=== PATIENT | female | born 1955 | race Caucasian/White ===

== ENCOUNTER 2024-03-19 06:35 | Day surgery (SDC) | payer MEDICARE, OTHER, SELFPAY ==
[2024-02-29 13:33] VITALS: BMI 25.1
[2024-02-29 15:04] LABS: Hematocrit 39.8 % (37.0-47.0); Hemoglobin 13.2 g/dL (12.0-16.0); Mean Corp Hgb Conc. 33.2 g/dL (33.0-37.0); Mean Corpuscular Hgb 29.1 pg (27.0-31.0); Mean Corpuscular Volume 87.9 fL (81.0-99.0); Mean Platelet Volume 11.9 fL (7.4-10.4); Platelet Count 263 10^3/uL (130-400); Red Blood Cell Count 4.53 10^6/uL (4.20-5.40); Red Cell Dist. Width 13.2 % (11.5-14.5); White Blood Cell Count 6.2 10^3/uL (4.8-10.8)
[2024-02-29 15:35] LABS: ALT (SGPT) 30 U/L (0-35); AST (SGOT) 30 U/L (14-36); Albumin 4.9 g/dl (3.5-5.0); Alkaline Phosphatase 57 U/L (38-126); Blood Urea Nitrogen 14 mg/dl (7-17); Calcium 9.8 mg/dl (8.4-10.2); Carbon Dioxide 25 mmol/L (22-30); Chloride 101 mmol/L (98-107); Estimated Creatinine Clearance 60 ml/min; Glucose 92 mg/dl (70-99); Potassium 4.5 mmol/L (3.5-5.1); Sodium 136 mmol/L (135-145); Total Bilirubin 0.3 mg/dl (0.2-1.3); Total Protein 7.6 g/dl (6.3-8.2); eGFR > 60.00
[2024-03-01 08:47] LABS: Glycohemoglobin (HgbA1c) 5.6 % (4.0-5.6)
--- NOTE | 2024-03-06 11:00 | VNURNOTE ---
Patient is scheduled for an elective R TKA on 03/19/24- She is a same day patient with Dr Webster. Spoke with patient prior to surgery. [facility]. Patient reports that she lives with her in [place], [place]
Patient has ordered a rolling walker. Advised to bring rolling walker with her day of surgery.
Discussed post surgical plans.
Referral for [facility] already sent by Ortho. Confirmed with Pilar at [facility] that they can see her same day of surgery. PT to call [facility] with DC time: [phone]. PT Zeynep White made aware and provided ph number.
Per PATRICK QuezadaA will need Op Note day of surgery. .
Patient has outpt PT scheduled for 03/22 in [place].
Patient is in agreement with plan and states that her will be home with her.
Plan: [facility] then outpt PT on 03/22
[2024-03-13 10:59] VITALS: BMI 25.1
[2024-03-19] VITALS (16 sets, daily range): BP systolic 93–118; BP diastolic 51–76; PULSE 101; O2SAT 97; BMI 25.1
--- NOTE | 2024-03-19 07:51 | W.DS.TRANS ---
DC Summary - Dry Can Tender
-
Discharge Instructions:
Discharge Diagnosis/Procedures R TKA 03/19/24
Diet As tolerated
Activity With Walker
Driving Restrictions No driving
Bathing Restrictions OK to Shower
Other Services PT
Instructions:
Stand-Alone Forms: SDS Total Hip and Knee D/C
Changes to Home Medications: Yes
Discharge Medications:
DC Medications w/original date entered in [employer]
atorvastatin 10 mg tablet 10 mg PO DAILY 03/13/24
biotin 10,000 mcg chewable tablet (Hair, Skin and Nails (biotin)) 10,000 mcg PO DAILY 03/13/24
calcium carbonate 500 mg PO DAILY 03/13/24
escitalopram oxalate 10 mg tablet (Lexapro) 10 mg PO DAILY 03/13/24
magnesium citrate 1 tab PO DAILY 03/13/24
mesalamine 100 mg PO HS 03/13/24
mesalamine 1,000 mg rectal suppository 1 g OK HS 03/13/24
multivitamin 1 tab PO DAILY 03/13/24
mupirocin 2 % topical ointment 1 applic topical BID 03/13/24
rizatriptan 10 mg tablet 10 mg PO PRN PRN migraines 03/13/24
turmeric 1 tab PO DAILY 03/13/24
vitamin D3 1,250 mcg (50,000 unit)-vitamin K2 200 mcg capsule 1 cap PO DAILY 03/13/24
acetaminophen 325 mg tablet (Tylenol) 650 mg (2 x 325 mg) PO QID #1 tab 03/19/24
aspirin 325 mg tablet 325 mg PO DAILY blood clot prevention #1 tab 03/19/24
celecoxib 100 mg capsule 100 mg PO BID Anti-inflammatory #14 caps 03/19/24
dexamethasone 4 mg tablet 4 mg PO BID inflammation #6 tabs 03/19/24
docusate sodium 100 mg capsule (Colace) 100 mg PO BID stool softner #1 cap 03/19/24
magnesium hydroxide 400 mg/5 mL oral suspension (Milk of Magnesia) 30 ml PO HS PRN Constipation #1 mL 01/27/25
ondansetron 4 mg disintegrating tablet 4 mg PO Q6H PRN n/v #20 tabs 03/19/24
oxycodone 5 mg tablet 5 mg PO Q6H PRN 1 tab moderate pain, 2 tabs severe pain #30 tabs 03/19/24
sennosides 8.6 mg tablet (Senokot) 17.2 mg (2 x 8.6 mg) PO BID laxative #2 tabs 03/19/24
Home Medication Changes
aspirin 325 mg tablet 325 mg PO DAILY blood clot prevention #1 tab 03/19/24
celecoxib 100 mg capsule 100 mg PO BID Anti-inflammatory #14 caps 03/19/24
dexamethasone 4 mg tablet 4 mg PO BID inflammation #6 tabs 03/19/24
docusate sodium 100 mg capsule (Colace) 100 mg PO BID stool softner #1 cap 03/19/24
magnesium hydroxide 400 mg/5 mL oral suspension (Milk of Magnesia) 30 ml PO HS PRN Constipation #1 mL 03/19/24
ondansetron 4 mg disintegrating tablet 4 mg PO Q6H PRN n/v #20 tabs 03/19/24
oxycodone 5 mg tablet 5 mg PO Q6H PRN 1 tab moderate pain, 2 tabs severe pain #30 tabs 03/19/24
sennosides 8.6 mg tablet (Senokot) 17.2 mg (2 x 8.6 mg) PO BID laxative #2 tabs 03/19/24
Pending Results: No
[2024-03-19] MEDS: CELEBREX 200 MG PO (07:55)
[2024-03-19] MEDS: TYLENOL 650 MG PO (07:55)
[2024-03-19] MEDS: NORMOSOL-R/PLASMALYTE-A 1000 IV (07:56)
[2024-03-19] MEDS: ROXICODONE 5 MG PO (13:38)
[2024-03-19] MEDS: ANCEF 5 IV (14:34)
== END 2024-03-19 15:16 | disposition home or self-care (01) ==
LOC: SDS 06:35
PROVIDERS: ATTENDING PHYSICIAN Specialist; FAMILY PHYSICIAN Family Medicine
DX: M17.11 Unilateral primary osteoarthritis, right knee (principal); G47.30 Sleep apnea, unspecified
CPT/HCPCS: 27447; 36415; 73560; 80053; 83036; 85027; 87070; 93005; 97116; 97162; C1713; C1776